=== PATIENT | female | born 1970 | race Two or more races ===

== ENCOUNTER 2021-05-18 12:00 | Inpatient (IN) | payer OTHER ==
[~2021-05-18] VITALS: Ht 157.5 cm; Wt 108.9 kg
[2021-05-18] MEDS ORDERED: DEPAKOTE ER250 MG PO (14:16)
[2021-05-18] MEDS ORDERED: PROZAC20 MG PO (14:16)
[2021-05-18] MEDS ORDERED: LODINE XL500 MG PO (14:17)
[2021-05-18] MEDS ORDERED: CLONAZEPAM0.5 MG PO (14:17)
[2021-05-18] MEDS ORDERED: TRAZODONE HCL100 MG PO (14:17)
[2021-05-18] MEDS ORDERED: PEPCID AC20 MG PO (14:17)
[2021-05-18] MEDS ORDERED: ZANAFLEX4 MG PO (14:18)
[2021-05-18] MEDS ORDERED: LIPITOR20 MG PO (14:18)
[2021-05-18] MEDS ORDERED: MAXIMUM D3325 MCG PO (14:18)
[2021-05-18] MEDS ORDERED: LEVOTHYROXINE25 MCG PO (14:18)
== END 2021-05-22 16:47 | disposition home or self-care (01) | DRG 734 ==
LOC: O/R 05-19 06:19 → SURH 05-19 12:00 → OB/GYN 05-19 16:02
PROVIDERS: ADMIT Specialist; ATTEND Specialist
PROC: 07TC0ZZ Resection of Pelvis Lymphatic, Open Approach (ICD-10-PCS; principal; 2021-05-21)
PROC: 0UT90ZZ Resection of Uterus, Open Approach (ICD-10-PCS; 2021-05-21)
PROC: 0UT70ZZ Resection of Bilateral Fallopian Tubes, Open Approach (ICD-10-PCS; 2021-05-21)
PROC: 0UT20ZZ Resection of Bilateral Ovaries, Open Approach (ICD-10-PCS; 2021-05-21)
PROC: 3E1M38Z Irrigation of Peritoneal Cavity using Irrigating Substance, Percutaneous Approach (ICD-10-PCS; 2021-05-21)
PROC: 30233N1 Transfusion of Nonautologous Red Blood Cells into Peripheral Vein, Percutaneous Approach (ICD-10-PCS; 2021-05-22)
DX: D06.0 Carcinoma in situ of endocervix (principal); D62 Acute posthemorrhagic anemia; N83.291 Other ovarian cyst, right side; N83.292 Other ovarian cyst, left side; Z20.822 Contact with and (suspected) exposure to COVID-19; N85.01 Benign endometrial hyperplasia